=== PATIENT | female | born 1950 | race Asian ===

== ENCOUNTER 2025-02-28 08:20 | Outpatient (CLI) | payer MEDICARE, BC ==
--- NOTE | 2025-02-28 10:39 | RADIOLOGY REPORT ---
Examination: CT CTA CHEST AORTA W/ IV CONTRAST CLINICAL HISTORY: OTHER PERICARDIAL EFFUSION, ANGINA PECTORIS Comparison: None Technique: Using helical technique, CT data from the chest through the upper abdomen was obtained dur ing rapid IV contrast infusion. The examination was timed to the arterial system to generate a CT ang iographic study. 3D images were generated at an independent work station. Dose reduction techniques i ncluded automated exposure control. Radiation Dose Information: CT Dose: CTDI volume is 5.4 mGy. Dose-length product is 233.7 mGy*cm Findings: Vascular: Thoracic aorta: Normal caliber, patent Aortic arch: Normal caliber, patent Descending aorta: Normal caliber, patent Supraaortic branches: Conventional branching pattern. Normal caliber, patent Coronary arteries: No coronary artery calcifications. Abdominal aorta: Normal caliber, patent Celiac artery: Patent SMA: Patent Renal arteries: Patent Portal/mesenteric veins: normal Abdominal systemic veins: normal Chest: Lungs/Pleura: Biapical scarring. No suspicious pulmonary nodules. No pleural effusion or focal pleura l lesion. Axilla/Soft Tissue: No supraclavicular or axillary adenopathy. Regional soft tissues are within marce l limits. Mediastinum:Visualized thyroid is normal. No pathologic mediastinal or hilar adenopathy. Esophagus i s normal. Trachea and proximal bronchi are normal. Heart: The heart is normal in size. No pericardial effusion. Abdomen/Pelvis: Bones: No acute fracture or aggressive osseous lesion. Degenerative changes of the spine. Impression: Vascular: 1. No evidence of acute vascular disease. Chest: 1. No acute intrathoracic process. 2. Lungs are hyperinflated suggestive of COPD. Abdomen: 1. No acute process.
== END 2025-02-28 23:59 | disposition home or self-care (01) ==
LOC: 64 CT 08:20
PROVIDERS: ATTEND Internal Medicine Interventional Cardiology
DX: I31.39 Other pericardial effusion (noninflammatory) (principal); I20.89 Other forms of angina pectoris; M47.814 Spondylosis without myelopathy or radiculopathy, thoracic region; I95.9 Hypotension, unspecified
CPT/HCPCS: 71275; Q9967